=== PATIENT | male | born 1990 | race Caucasian/White ===

== ENCOUNTER 2016-08-27 15:57 | Emergency (ER) | payer OTHER ==
[~2016-08-27] VITALS: Ht 182.9 cm; Wt 63.5 kg
[2016-08-27] MEDS ORDERED: SULFAMETH/TRIMETH 800/160 MG TABLET PO ONE (16:30)
[2016-08-27] MEDS ORDERED: SULFAMETH/TRIMETH 800/160 MG TABLET ONE (16:39)
--- NOTE | 2016-08-27 17:17 | NUR ---
Pt evaluated for abscess on LUE and pain/swelling of R hand. 4 inch boxer splint provided for pt., gopal well. VSS, nad at this time.
--- NOTE | 2016-08-27 17:30 | NUR ---
Patient discharged home in stable conditon. Written and verbal after care instructions given. Patient verbalizes understanding of instructions. Father with pt.
[2016-08-27 17:31] VITALS: BP 110/66
== END 2016-08-27 17:32 | disposition home or self-care (01) ==
LOC: ER 16:08
DX: S62.306A Unspecified fracture of fifth metacarpal bone, right hand, initial encounter for closed fracture (principal); F10.20 Alcohol dependence, uncomplicated; F19.10 Other psychoactive substance abuse, uncomplicated; X58.XXXA Exposure to other specified factors, initial encounter; Y93.89 Activity, other specified; Y99.8 Other external cause status; Y92.89 Other specified places as the place of occurrence of the external cause
CPT/HCPCS: 29125; 73130; 99284; A4663

== ENCOUNTER 2016-08-29 13:22 | Emergency (ER) | payer OTHER ==
[~2016-08-29] VITALS: Ht 182.9 cm; Wt 63.5 kg
[2016-08-29] MEDS ORDERED: LIDOCAINE HCL 1% 20 ML VIAL ONE (14:11)
[2016-08-29] MEDS ORDERED: LIDOCAINE HCL 1% 20 ML VIAL IJ ONE (14:15)
--- NOTE | 2016-08-29 14:16 | NUR ---
i/d set-up at bedside.
--- NOTE | 2016-08-29 14:16 | NUR ---
Pt ambulatory to bed 2b, dr andres at bedside for exam.
--- NOTE | 2016-08-29 15:12 | NUR ---
mse completed, abscess i and d per dr andres, site was then cleaned and dressed, pt was then d/c'd home, aci given. pt ambulated vw/o diff/took all belongings.
[2016-08-29 15:14] VITALS: BP 120/63
== END 2016-08-29 15:14 | disposition home or self-care (01) ==
LOC: ER 13:22
DX: L02.414 Cutaneous abscess of left upper limb (principal); F19.10 Other psychoactive substance abuse, uncomplicated
CPT/HCPCS: 10060; 99283; A4663; J3490